=== PATIENT | female | born 1990 | race Caucasian/White ===

== ENCOUNTER → 2017-07-02 | Emergency (ER) | payer OTHER ==
[~2017-07-02] VITALS: Ht 160 cm; Wt 63.5 kg
== END | disposition home or self-care (01) ==
LOC: ER 15:49
DX: M94.0 Chondrocostal junction syndrome [Tietze] (principal); M54.2 Cervicalgia

== ENCOUNTER → 2019-11-29 | Outpatient (CLI) | payer OTHER | END | disposition home or self-care (01) | LOC: OFIC 805 13:00 | PROVIDERS: ATTEND Otolaryngology Otology & Neurotology | DX: H93.12 Tinnitus, left ear (principal); J31.0 Chronic rhinitis; H68.102 Unspecified obstruction of Eustachian tube, left ear ==

== ENCOUNTER 2020-08-25 12:33 | Inpatient (IN) | payer OTHER ==
[~2020-08-25] VITALS: Ht 160 cm; Wt 66.2 kg
--- NOTE | 2020-08-25 12:39 | NUR ---
PACIENTE ALERTA Y ORIENTADA POR TAYO. REFIERE PARTO EL 6 DE Y LE PREOCUPA QUE EL SANGRADO PARECIA QUE TERMINARIA KEDAR EN MOMENTOS SANGRA Y PRESENTA COAGULOS GRANDES ANGELA DE SANGRAR POR HORAS Y LUEGO REGRESA EL SANGRADO. REFIERE VALDEZ GINECOLOGA LE INDICO SI TENIA SANGRADO OBSCURO Y CON COAGULOS LUEGO DE QUE ACLARARA VISITARA WES MACARIO DE EMRGENCIAS.
[2020-08-25] MEDS ORDERED: PRENATAL (12:46)
--- NOTE | 2020-08-25 13:58 | NUR ---
SE RECIBE PTE FEMENINA DE 29 YRS ALERTA CONCIENTE Y TRANAUILA EN COMAPANIA DE FMAILIAR [PTE ES EVALUADA POR EL ZONIA HARP. QUIEN ORDENA TRATAMIENTO LA CUAL SE EJECUTA. SE MANTIENE BAJO OBSERVACION.
--- NOTE | 2020-08-25 16:08 | NUR ---
SE RECIBE PTE ALERTA Y ORIENTADA X3 EN ELENA CON BARANDAS ELEVADAS. SE RECIBE PTE EN ESPERA DE SONOGRAMA PELVICO. SE EDUCA DE TENER VEJIGA LLENA PARA REALIZAR SONO. PTE EN ESPERA DE SONO.
[2020-08-25] MEDS ORDERED: DOXYCYCLINE HY100 MG PO (22:31)
[2020-08-25] MEDS ORDERED: METHYLERGONOVINE PO (22:40)
[2020-08-25] MEDS ORDERED: NASAL MIST126 ML NASAL (22:40)
== END 2020-08-26 03:20 | disposition home or self-care (01) | DRG 769 ==
LOC: ER 12:33 → O/R 20:03 → SEC-K 20:03 → O/R 21:20
PROVIDERS: ADMIT Obstetrics & Gynecology; ATTEND Obstetrics & Gynecology
PROC: 10D17ZZ Extraction of Products of Conception, Retained, Via Natural or Artificial Opening (ICD-10-PCS; principal; 2020-08-25 21:30)
DX: O72.2 Delayed and secondary postpartum hemorrhage (principal)

== ENCOUNTER 2020-08-26 14:22 | Emergency (ER) | payer OTHER ==
[~2020-08-26] VITALS: Ht 160 cm; Wt 66.2 kg
[~2020-08-26 14:22] MED LIST: DOXYCYCLINE HY100 MG PO; METHYLERGONOVINE PO; NASAL MIST126 ML NASAL; PRENATAL
== END 2020-08-26 18:45 | disposition home or self-care (01) ==
LOC: ER 14:22
DX: G89.11 Acute pain due to trauma (principal)

== ENCOUNTER 2020-10-13 08:00 | Outpatient (CLI) | payer OTHER | END 2020-10-13 08:30 | disposition home or self-care (01) | LOC: PPH VACUNA 08:00 | DX: Z23 Encounter for immunization (principal) ==

== ENCOUNTER 2020-11-03 08:00 | Outpatient (CLI) | payer OTHER | END 2020-11-03 08:30 | disposition home or self-care (01) | LOC: PPH VACUNA 08:00 | PROVIDERS: ATTEND Emergency Medicine Pediatric Emergency Medicine | DX: Z23 Encounter for immunization (principal) ==